=== PATIENT | male | born 1945 | race Caucasian/White ===

== ENCOUNTER → 2016-10-20 | Outpatient (REF) | payer MEDICARE | LOC: M SFHCPLAZ 07:59 | PROVIDERS: ATTEND Physician Assistant Medical | DX: E66.01 Morbid (severe) obesity due to excess calories (principal) ==

== ENCOUNTER → 2016-10-27 | Outpatient (REF) | payer MEDICARE ==
[2016-10-27 12:12] LABS: ALBUMIN 3.5 GM/DL (3.2-5.2); ALBUMIN/GLOBULIN RATIO 0.97 (1.00-1.93); ALKALINE PHOSPHATASE 69 U/L (45-117); ALT/SGPT 20 U/L (12-78); ANION GAP 9 MEQ/L (8-16); AST/SGOT 16 U/L (15-37); BILIRUBIN,TOTAL 0.5 MG/DL (0.2-1.0); BLOOD UREA NITROGEN 13 MG/DL (7-18); CALCIUM LEVEL 8.9 MG/DL (8.8-10.2); CARBON DIOXIDE LEVEL 31 MEQ/L (21-32); CHLORIDE LEVEL 102 MEQ/L (98-107); CREATININE FOR GFR 1.01 MG/DL (0.70-1.30); GLOMERULAR FILTRATION RATE > 60.0 (>42); GLUCOSE, FASTING 98 MG/DL (83-110); POTASSIUM SERUM 4.1 MEQ/L (3.5-5.1); SODIUM LEVEL 142 MEQ/L (136-145); TOTAL PROTEIN 7.1 GM/DL (6.4-8.2)
== END ==
LOC: M SFHCPLAZ 10:13
PROVIDERS: ATTEND Physician Assistant Medical
DX: E87.6 Hypokalemia (principal); I10 Essential (primary) hypertension; M10.9 Gout, unspecified; I83.11 Varicose veins of right lower extremity with inflammation; I83.12 Varicose veins of left lower extremity with inflammation; Z12.5 Encounter for screening for malignant neoplasm of prostate; Z12.11 Encounter for screening for malignant neoplasm of colon; E66.01 Morbid (severe) obesity due to excess calories
CPT/HCPCS: 36415; 80053; G0463

== ENCOUNTER → 2017-04-05 | Outpatient (CLI) | payer MEDICARE | LOC: M SMT 14:40 | DX: R06.02 Shortness of breath (principal); R91.1 Solitary pulmonary nodule | CPT/HCPCS: 71046; 82550 ==

== ENCOUNTER → 2017-04-05 | Outpatient (REF) | payer MEDICARE ==
[2017-04-05 15:29] LABS: BASO # 0.1 10^3/uL (0.0-0.2); BASO % 0.8 % (0.0-1.0); EOS # 0.2 10^3/uL (0.0-0.50); EOS % 1.7 % (0.0-3.0); HEMATOCRIT 45.3 % (42.0-52.0); HEMOGLOBIN 15.4 g/dl (14.0-18.0); IMMATURE GRANULOCYTE % 0.3 % (0-0); MEAN CORPUSCULAR HEMOGLOBIN 30.6 pg (27.0-33.0); MEAN CORPUSCULAR VOLUME 90.1 fl (80.0-96.0); NEUTROPHILS # 7.7 10^3/uL (1.8-7.7); NEUTROPHILS % 70.2 % (36.0-66.0); PLATELET COUNT, AUTOMATED 290 10^3/uL (150-450); RED BLOOD COUNT 5.03 10^6/uL (4.30-6.10); RED CELL DISTRIBUTION WIDTH 13.4 % (11.5-14.5); WHITE BLOOD COUNT 10.9 10^3/uL (4.0-10.0)
[2017-04-05 15:55] LABS: ALBUMIN 3.7 GM/DL (3.2-5.2); ALBUMIN/GLOBULIN RATIO 0.97 (1.00-1.93); ALKALINE PHOSPHATASE 81 U/L (45-117); ALT/SGPT 20 U/L (12-78); ANION GAP 9 MEQ/L (8-16); AST/SGOT 24 U/L (7-37); BILIRUBIN,TOTAL 0.6 MG/DL (0.2-1.0); BLOOD UREA NITROGEN 15 MG/DL (7-18); CALCIUM LEVEL 8.8 MG/DL (8.8-10.2); CARBON DIOXIDE LEVEL 30 MEQ/L (21-32); CHLORIDE LEVEL 103 MEQ/L (98-107); CPK CREATINE PHOSPHOKINASE 79 U/L (39-308); CREATININE FOR GFR 0.86 MG/DL (0.70-1.30); GLOMERULAR FILTRATION RATE > 60.0 (>42); GLUCOSE, FASTING 95 MG/DL (70-100); SODIUM LEVEL 142 MEQ/L (136-145); TOTAL PROTEIN 7.5 GM/DL (6.4-8.2); TROPONIN I < 0.02 NG/ML (< 0.10)
[2017-04-05 16:05] LABS: MB/CK RELATIVE INDEX 1.26 (< OR =4); NT-PRO BNP 500 PG/ML (<125); POTASSIUM SERUM 4.1 MEQ/L (3.5-5.1)
== END ==
LOC: M SFHCPLAZ 13:57
DX: R06.02 Shortness of breath (principal)
CPT/HCPCS: 82550

== ENCOUNTER → 2017-04-19 | Outpatient (CLI) | payer MEDICARE ==
[~2017-04-19] MED LIST: ISOVUE-370 76% 100ML VIAL (Q9967) As Ordered
== END ==
LOC: M RAD 15:12
DX: R91.1 Solitary pulmonary nodule (principal)
CPT/HCPCS: Q9967

== ENCOUNTER → 2017-04-21 | Outpatient (REF) | payer MEDICARE ==
[2017-04-21 12:55] LABS: ALBUMIN 3.7 GM/DL (3.2-5.2); ALBUMIN/GLOBULIN RATIO 1.09 (1.00-1.93); ALKALINE PHOSPHATASE 78 U/L (45-117); ALT/SGPT 20 U/L (12-78); ANION GAP 10 MEQ/L (8-16); AST/SGOT 19 U/L (7-37); BILIRUBIN,TOTAL 0.6 MG/DL (0.2-1.0); BLOOD UREA NITROGEN 18 MG/DL (7-18); CALCIUM LEVEL 8.9 MG/DL (8.8-10.2); CARBON DIOXIDE LEVEL 32 MEQ/L (21-32); CHLORIDE LEVEL 99 MEQ/L (98-107); CREATININE FOR GFR 0.99 MG/DL (0.70-1.30); GLOMERULAR FILTRATION RATE > 60.0 (>42); GLUCOSE, FASTING 106 MG/DL (70-100); NT-PRO BNP 517 PG/ML (<125); POTASSIUM SERUM 3.8 MEQ/L (3.5-5.1); SODIUM LEVEL 141 MEQ/L (136-145); TOTAL PROTEIN 7.1 GM/DL (6.4-8.2)
== END ==
LOC: M SFHCPLAZ 08:23
DX: K21.9 Gastro-esophageal reflux disease without esophagitis (principal); R06.02 Shortness of breath; R91.1 Solitary pulmonary nodule
CPT/HCPCS: 80053

== ENCOUNTER 2017-05-17 11:37 | Emergency (ER) | payer MEDICARE ==
[2017-05-17 12:31] LABS: BASO # 0.1 10^3/uL (0.0-0.2); BASO % 0.4 % (0.0-1.0); EOS # 0.2 10^3/uL (0.0-0.50); EOS % 1.9 % (0.0-3.0); HEMOGLOBIN 11.5 g/dl (14.0-18.0); LYMPH # 1.4 10^3/uL (1.5-4.5); LYMPH % 10.7 % (24.0-44.0); MEAN CORPUSCULAR HEMOGLOBIN 29.9 pg (27.0-33.0); MEAN CORPUSCULAR HGB CONC 31.9 g/dl (32.0-36.5); MEAN CORPUSCULAR VOLUME 93.5 fl (80.0-96.0); MONO # 0.9 10^3/uL (0.0-0.8); MONO % 7.2 % (0.0-5.0); NEUTROPHILS # 9.9 10^3/uL (1.8-7.7); NEUTROPHILS % 78.8 % (36.0-66.0); PLATELET COUNT, AUTOMATED 273 10^3/uL (150-450); RED BLOOD COUNT 3.85 10^6/uL (4.30-6.10); RED CELL DISTRIBUTION WIDTH 14.7 % (11.5-14.5); WHITE BLOOD COUNT 12.6 10^3/uL (4.0-10.0)
[2017-05-17 12:40] LABS: INR 1.06; PROTHROMBIN TIME 13.9 SECONDS (12.4-14.5)
[2017-05-17 12:41] LABS: PARTIAL THROMBOPLASTIN TIME 32.7 SECONDS (26.8-37.9)
[2017-05-17] MEDS: NITROGLYCERIN 0.4 MG SUBL TABLET SL (12:44)
[2017-05-17] MEDS: ASPIRIN 81 MG CHEW TABLET PO (12:45)
[2017-05-17 13:27] LABS: ERYTHROCYTE SEDIMENTATION RATE 59 mm/hr (0-20)
[2017-05-17 13:32] LABS: ALBUMIN/GLOBULIN RATIO 0.81 (1.00-1.93); ALT/SGPT 36 U/L (12-78); ANION GAP 7 MEQ/L (8-16); AST/SGOT 29 U/L (7-37); BILIRUBIN,DIRECT 0.2 MG/DL (0.0-0.2); BILIRUBIN,TOTAL 0.6 MG/DL (0.2-1.0); BLOOD UREA NITROGEN 15 MG/DL (7-18); CALCIUM LEVEL 8.4 MG/DL (8.8-10.2); CARBON DIOXIDE LEVEL 31 MEQ/L (21-32); CHLORIDE LEVEL 101 MEQ/L (98-107); CREATININE FOR GFR 0.99 MG/DL (0.70-1.30); GLOMERULAR FILTRATION RATE > 60.0 (>42); GLUCOSE, FASTING 112 MG/DL (70-100); LIPASE 78 U/L (73-393); POTASSIUM SERUM 4.1 MEQ/L (3.5-5.1); SODIUM LEVEL 139 MEQ/L (136-145); TOTAL PROTEIN 6.7 GM/DL (6.4-8.2); TROPONIN I 0.18 NG/ML (< 0.10)
[2017-05-17 13:33] LABS: NT-PRO BNP 3792 PG/ML (<125)
[2017-05-17 13:38] LABS: ALKALINE PHOSPHATASE 90 U/L (45-117); CK-MB VALUE MASS 1.9 NG/ML (0.0-3.6); CPK CREATINE PHOSPHOKINASE 40 U/L (39-308); FREE T4 1.29 NG/DL (0.76-1.46); MB/CK RELATIVE INDEX 4.75 (< OR =4)
[2017-05-17 14:25] LABS: D-DIMER QUANT > 4000.0 ng/ml (<500)
[2017-05-17] MEDS: HEPARIN SOD (PORCINE) 5000 UNITS/ML VIAL IV (14:33)
[2017-05-17] MEDS: HEPARIN DRIP 25,000 UNITS in APPROPRIATE DILUENT 1 EA IV (14:35)
== END 2017-05-17 17:04 | disposition short-term general hospital (02) ==
LOC: M ED 11:37
DX: I25.110 Atherosclerotic heart disease of native coronary artery with unstable angina pectoris (principal); R79.89 Other specified abnormal findings of blood chemistry; Z98.890 Other specified postprocedural states; Z95.1 Presence of aortocoronary bypass graft; R06.02 Shortness of breath; I11.9 Hypertensive heart disease without heart failure; I48.91 Unspecified atrial fibrillation; I25.2 Old myocardial infarction; K21.9 Gastro-esophageal reflux disease without esophagitis; M10.9 Gout, unspecified; Z87.891 Personal history of nicotine dependence; Z79.899 Other long term (current) drug therapy; Z79.82 Long term (current) use of aspirin
CPT/HCPCS: 71046

== ENCOUNTER 2017-05-30 11:46 | Inpatient (IN) | payer MEDICARE ==
[2017-05-30 12:33] LABS: BASO # 0.1 10^3/uL (0.0-0.2); BASO % 0.6 % (0.0-1.0); EOS # 0.4 10^3/uL (0.0-0.50); EOS % 3.6 % (0.0-3.0); HEMATOCRIT 36.9 % (42.0-52.0); HEMOGLOBIN 11.8 g/dl (14.0-18.0); IMMATURE GRANULOCYTE % 0.7 % (0-3.0); LYMPH # 1.2 10^3/uL (1.5-4.5); LYMPH % 10.8 % (24.0-44.0); MEAN CORPUSCULAR HEMOGLOBIN 29.4 pg (27.0-33.0); MEAN CORPUSCULAR VOLUME 91.8 fl (80.0-96.0); MONO # 0.7 10^3/uL (0.0-0.8); MONO % 6.7 % (0.0-5.0); NEUTROPHILS # 8.4 10^3/uL (1.8-7.7); NEUTROPHILS % 77.6 % (36.0-66.0); PLATELET COUNT, AUTOMATED 349 10^3/uL (150-450); RED BLOOD COUNT 4.02 10^6/uL (4.30-6.10); WHITE BLOOD COUNT 10.9 10^3/uL (4.0-10.0)
[2017-05-30 12:40] LABS: PARTIAL THROMBOPLASTIN TIME 35.8 SECONDS (26.8-37.9)
[2017-05-30 12:47] LABS: ALBUMIN 3.2 GM/DL (3.2-5.2); ALKALINE PHOSPHATASE 117 U/L (45-117); ALT/SGPT 27 U/L (12-78); ANION GAP 7 MEQ/L (8-16); AST/SGOT 21 U/L (7-37); BILIRUBIN,DIRECT 0.2 MG/DL (0.0-0.2); BILIRUBIN,TOTAL 0.6 MG/DL (0.2-1.0); BLOOD UREA NITROGEN 13 MG/DL (7-18); CALCIUM LEVEL 8.6 MG/DL (8.8-10.2); CARBON DIOXIDE LEVEL 32 MEQ/L (21-32); CHLORIDE LEVEL 101 MEQ/L (98-107); CPK CREATINE PHOSPHOKINASE 37 U/L (39-308); CREATININE FOR GFR 0.95 MG/DL (0.70-1.30); GLOMERULAR FILTRATION RATE > 60.0 (>42); GLUCOSE, FASTING 105 MG/DL (70-100); LIPASE 88 U/L (73-393); POTASSIUM SERUM 3.4 MEQ/L (3.5-5.1); SODIUM LEVEL 140 MEQ/L (136-145); TOTAL PROTEIN 7.2 GM/DL (6.4-8.2); TROPONIN I 0.14 NG/ML (< 0.10)
[2017-05-30 12:53] LABS: CK-MB VALUE MASS 1.6 NG/ML (0.0-3.6); MB/CK RELATIVE INDEX 4.32 (< OR =4); NT-PRO BNP 1987 PG/ML (<125)
[2017-05-30] MEDS: FUROSEMIDE 40 MG/4 ML VIAL (J1940) IV ×2 (13:30→18:00)
[2017-05-30 13:56] LABS: INR 1.07; PROTHROMBIN TIME 14.1 SECONDS (12.4-14.5)
[2017-05-30 16:01] LABS: CPK CREATINE PHOSPHOKINASE 36 U/L (39-308)
[2017-05-30 16:02] LABS: CK-MB VALUE MASS 1.4 NG/ML (0.0-3.6); MB/CK RELATIVE INDEX 3.88 (< OR =4)
[2017-05-30] MEDS ORDERED: ONDANSETRON 4MG/2ML VIAL (J2405) IV (18:00)
[2017-05-30] MEDS ORDERED: ACETAMINOPHEN TAB 650MG DOSE (2X325MG) PO (18:00)
[2017-05-30] MEDS ORDERED: ISOVUE-370 76% 100ML VIAL (Q9967) As Ordered (18:36)
[2017-05-30] MEDS ORDERED: MOM 30ML SUSPENSION UDC PO (19:00)
[2017-05-30] MEDS: ENOXAPARIN 100MG/1ML SYRINGE (J1650) SC (20:11)
[2017-05-30] MEDS: CARVedilol 12.5 MG TAB PO (20:14)
[2017-05-30] MEDS: SENNA 8.6 MG TAB (SENOKOT) PO (20:14)
[2017-05-30] MEDS: ATORVASTATIN 20 MG TAB PO (20:15)
[2017-05-30 23:37] LABS: CK-MB VALUE MASS 2.1 NG/ML (0.0-3.6); CPK CREATINE PHOSPHOKINASE 34 U/L (39-308); MB/CK RELATIVE INDEX 6.17 (< OR =4); TROPONIN I 0.08 NG/ML (< 0.10)
[2017-05-31] MEDS: ACETAMINOPHEN 500 MG TAB PO (00:05)
[2017-05-31 05:05] LABS: HEMATOCRIT 34.7 % (42.0-52.0); HEMOGLOBIN 11.3 g/dl (14.0-18.0); MEAN CORPUSCULAR HGB CONC 32.6 g/dl (32.0-36.5); PLATELET COUNT, AUTOMATED 297 10^3/uL (150-450); RED BLOOD COUNT 3.77 10^6/uL (4.30-6.10); RED CELL DISTRIBUTION WIDTH 13.9 % (11.5-14.5); WHITE BLOOD COUNT 10.4 10^3/uL (4.0-10.0)
[2017-05-31 05:19] LABS: ANION GAP 8 MEQ/L (8-16); BLOOD UREA NITROGEN 15 MG/DL (7-18); CALCIUM LEVEL 8.7 MG/DL (8.8-10.2); CARBON DIOXIDE LEVEL 33 MEQ/L (21-32); CHLORIDE LEVEL 101 MEQ/L (98-107); CREATININE FOR GFR 0.98 MG/DL (0.70-1.30); GLOMERULAR FILTRATION RATE > 60.0 (>42); GLUCOSE, FASTING 112 MG/DL (70-100); MAGNESIUM LEVEL 1.8 MG/DL (1.8-2.4); POTASSIUM SERUM 2.9 MEQ/L (3.5-5.1); SODIUM LEVEL 142 MEQ/L (136-145)
[2017-05-31] MEDS: POTASSIUM CHLORIDE 10 MEQ SR TABLET PO ×2 (06:48→11:00)
[2017-05-31] MEDS: ENOXAPARIN 100MG/1ML SYRINGE (J1650) SC (08:51)
[2017-05-31] MEDS: ASPIRIN 81 MG ENTERIC TAB PO (08:52)
[2017-05-31] MEDS: AMIODARONE 200 MG TAB (PACERONE) PO (08:52)
[2017-05-31] MEDS: CLOPIDOGREL 75 MG TAB PO (08:52)
[2017-05-31] MEDS: OMEPRAZOLE 20 MG CAP PO (08:52)
[2017-05-31] MEDS: CARVedilol 12.5 MG TAB PO ×2 (08:52→20:44)
[2017-05-31] MEDS: ALLOPURINOL 100 MG TAB PO (08:52)
[2017-05-31] MEDS ORDERED: ENOXAPARIN 40 MG/0.4 ML SYRINGE (J1650) SC (09:00)
[2017-05-31 14:23] LABS: BLOOD UREA NITROGEN 17 MG/DL (7-18); CALCIUM LEVEL 8.8 MG/DL (8.8-10.2); CARBON DIOXIDE LEVEL 33 MEQ/L (21-32); CHLORIDE LEVEL 102 MEQ/L (98-107); CREATININE FOR GFR 0.96 MG/DL (0.70-1.30); GLOMERULAR FILTRATION RATE > 60.0 (>42); GLUCOSE, FASTING 107 MG/DL (70-100)
[2017-05-31 14:28] LABS: ANION GAP 5 MEQ/L (8-16); POTASSIUM SERUM 3.9 MEQ/L (3.5-5.1); SODIUM LEVEL 140 MEQ/L (136-145)
[2017-05-31] MEDS: ATORVASTATIN 20 MG TAB PO (20:43)
[2017-05-31] MEDS: APIXABAN 5 MG TAB (ELIQUIS) PO (20:44)
[2017-05-31] MEDS: SENNA 8.6 MG TAB (SENOKOT) PO (20:44)
[2017-06-01 05:45] LABS: HEMATOCRIT 34.6 % (42.0-52.0); MEAN CORPUSCULAR HEMOGLOBIN 29.1 pg (27.0-33.0); MEAN CORPUSCULAR HGB CONC 31.8 g/dl (32.0-36.5); MEAN CORPUSCULAR VOLUME 91.5 fl (80.0-96.0); PLATELET COUNT, AUTOMATED 309 10^3/uL (150-450); RED BLOOD COUNT 3.78 10^6/uL (4.30-6.10); RED CELL DISTRIBUTION WIDTH 13.8 % (11.5-14.5); WHITE BLOOD COUNT 10.7 10^3/uL (4.0-10.0)
[2017-06-01 06:03] LABS: ANION GAP 7 MEQ/L (8-16); BLOOD UREA NITROGEN 18 MG/DL (7-18); CALCIUM LEVEL 8.9 MG/DL (8.8-10.2); CARBON DIOXIDE LEVEL 31 MEQ/L (21-32); CHLORIDE LEVEL 104 MEQ/L (98-107); CREATININE FOR GFR 0.92 MG/DL (0.70-1.30); GLOMERULAR FILTRATION RATE > 60.0 (>42); GLUCOSE, FASTING 103 MG/DL (70-100); POTASSIUM SERUM 3.6 MEQ/L (3.5-5.1); SODIUM LEVEL 142 MEQ/L (136-145)
[2017-06-01] MEDS: APIXABAN 5 MG TAB (ELIQUIS) PO (08:52)
[2017-06-01] MEDS: ALLOPURINOL 100 MG TAB PO (08:52)
[2017-06-01] MEDS: CLOPIDOGREL 75 MG TAB PO (08:52)
[2017-06-01] MEDS: OMEPRAZOLE 20 MG CAP PO (08:53)
[2017-06-01] MEDS: CARVedilol 12.5 MG TAB PO (08:53)
[2017-06-01] MEDS: ASPIRIN 81 MG ENTERIC TAB PO (08:53)
[2017-06-01] MEDS: AMIODARONE 200 MG TAB (PACERONE) PO (08:54)
== END 2017-06-01 15:05 | disposition home health service (06) | DRG 176 ==
LOC: M ED 11:46 → M ED INP 17:50 → M PCU 19:39
DX: I26.99 Other pulmonary embolism without acute cor pulmonale (principal); I50.9 Heart failure, unspecified; Z95.0 Presence of cardiac pacemaker; I25.10 Atherosclerotic heart disease of native coronary artery without angina pectoris; I48.2 Chronic atrial fibrillation; E66.01 Morbid (severe) obesity due to excess calories; Z79.899 Other long term (current) drug therapy; M10.9 Gout, unspecified; K57.30 Diverticulosis of large intestine without perforation or abscess without bleeding; K21.9 Gastro-esophageal reflux disease without esophagitis; Z95.2 Presence of prosthetic heart valve; E87.6 Hypokalemia

== ENCOUNTER → 2017-05-30 | Outpatient (REF) ==
[2017-05-30 10:46] LABS: HEMATOCRIT 36.5 % (42.0-52.0); HEMOGLOBIN 11.7 g/dl (14.0-18.0); MEAN CORPUSCULAR HEMOGLOBIN 29.5 pg (27.0-33.0); MEAN CORPUSCULAR HGB CONC 32.1 g/dl (32.0-36.5); MEAN CORPUSCULAR VOLUME 92.2 fl (80.0-96.0); PLATELET COUNT, AUTOMATED 362 10^3/uL (150-450); RED BLOOD COUNT 3.96 10^6/uL (4.30-6.10); RED CELL DISTRIBUTION WIDTH 13.9 % (11.5-14.5); WHITE BLOOD COUNT 10.5 10^3/uL (4.0-10.0)
[2017-05-30 11:15] LABS: ANION GAP 9 MEQ/L (8-16); BLOOD UREA NITROGEN 14 MG/DL (7-18); CALCIUM LEVEL 8.6 MG/DL (8.8-10.2); CARBON DIOXIDE LEVEL 32 MEQ/L (21-32); CHLORIDE LEVEL 100 MEQ/L (98-107); CREATININE FOR GFR 0.99 MG/DL (0.70-1.30); GLOMERULAR FILTRATION RATE > 60.0 (>42); GLUCOSE, FASTING 118 MG/DL (70-100); NT-PRO BNP 2065 PG/ML (<125); POTASSIUM SERUM 3.6 MEQ/L (3.5-5.1); SODIUM LEVEL 141 MEQ/L (136-145)
[2017-05-30 20:38] LABS: CHOLESTEROL LEVEL 120 MG/DL (<200); HDL CHOLESTEROL 50 MG/DL (>40); LDL CHOLESTEROL 44.8 MG/DL (<100); NON-HDL-C 70 MG/DL; TRIGLYCERIDES LEVEL 126 MG/DL (<150)
== END ==
DX: I48.91 Unspecified atrial fibrillation (principal)

== ENCOUNTER → 2017-06-09 | Outpatient (REF) | payer MEDICARE ==
[2017-06-09 15:51] LABS: BASO # 0.1 10^3/uL (0.0-0.2); BASO % 0.9 % (0.0-1.0); EOS # 0.6 10^3/uL (0.0-0.50); HEMATOCRIT 37.8 % (42.0-52.0); HEMOGLOBIN 11.7 g/dl (13.5-17.5); IMMATURE GRANULOCYTE % 0.5 % (0-3.0); LYMPH # 1.5 10^3/uL (1.5-4.5); LYMPH % 17.8 % (24.0-44.0); MEAN CORPUSCULAR VOLUME 93.8 fl (80.0-96.0); MONO # 0.7 10^3/uL (0.0-0.8); MONO % 8.5 % (0.0-5.0); NEUTROPHILS # 5.5 10^3/uL (1.8-7.7); NEUTROPHILS % 65.3 % (36.0-66.0); PLATELET COUNT, AUTOMATED 314 10^3/uL (150-450); RED BLOOD COUNT 4.03 10^6/uL (4.30-6.10); WHITE BLOOD COUNT 8.5 10^3/uL (4.0-10.0)
[2017-06-09 16:05] LABS: ALBUMIN 3.4 GM/DL (3.2-5.2); ALBUMIN/GLOBULIN RATIO 0.94 (1.00-1.93); ALKALINE PHOSPHATASE 112 U/L (45-117); ALT/SGPT 19 U/L (12-78); ANION GAP 8 MEQ/L (8-16); AST/SGOT 20 U/L (7-37); BILIRUBIN,TOTAL 0.4 MG/DL (0.2-1.0); BLOOD UREA NITROGEN 13 MG/DL (7-18); CALCIUM LEVEL 8.6 MG/DL (8.8-10.2); CARBON DIOXIDE LEVEL 28 MEQ/L (21-32); CHLORIDE LEVEL 109 MEQ/L (98-107); FERRITIN 379 NG/ML (26-388); GLOMERULAR FILTRATION RATE > 60.0 (>42); GLUCOSE, FASTING 83 MG/DL (70-100); IRON (FE) 42 UG/DL (65-175); PERCENT SATURATION 18.3 % (19.7-50.0); POTASSIUM SERUM 4.3 MEQ/L (3.5-5.1); SODIUM LEVEL 145 MEQ/L (136-145); TOTAL IRON BINDING CAPACITY 230 UG/DL (250-450)
== END ==
LOC: M SFHCPLAZ 12:19
DX: E87.6 Hypokalemia (principal); D50.9 Iron deficiency anemia, unspecified
CPT/HCPCS: 83550

== ENCOUNTER 2017-06-30 08:21 | Outpatient (RCR) | payer MEDICARE | END 2017-07-11 | LOC: M CR 08:21 | DX: Z51.89 Encounter for other specified aftercare (principal); Z95.1 Presence of aortocoronary bypass graft | CPT/HCPCS: 93798 ==

== ENCOUNTER 2017-07-25 12:41 | Outpatient (RCR) | payer MEDICARE | END 2017-08-11 | LOC: M CR 12:41 | DX: Z95.1 Presence of aortocoronary bypass graft (principal) | CPT/HCPCS: 93798 ==

== ENCOUNTER 2017-08-12 09:31 | Outpatient (RCR) | payer MEDICARE | END 2017-09-10 | LOC: M CR 09:31 | DX: Z95.1 Presence of aortocoronary bypass graft (principal) | CPT/HCPCS: 93798 ==

== ENCOUNTER 2017-09-12 10:22 | Outpatient (RCR) | payer MEDICARE | END 2017-10-11 | LOC: M CR 10:22 | DX: Z51.89 Encounter for other specified aftercare (principal); Z95.1 Presence of aortocoronary bypass graft | CPT/HCPCS: 93798 ==

== ENCOUNTER → 2017-10-03 | Outpatient (REF) | payer MEDICARE ==
[2017-10-03 13:36] LABS: BASO # 0.1 10^3/uL (0.0-0.2); BASO % 0.6 % (0.0-1.0); EOS # 0.3 10^3/uL (0.0-0.50); EOS % 3.6 % (0.0-3.0); HEMATOCRIT 35.1 % (42.0-52.0); IMMATURE GRANULOCYTE % 0.3 % (0-3.0); LYMPH # 1.1 10^3/uL (1.5-4.5); LYMPH % 14.4 % (24.0-44.0); MEAN CORPUSCULAR HEMOGLOBIN 28.3 pg (27.0-33.0); MEAN CORPUSCULAR HGB CONC 31.3 g/dl (32.0-36.5); MEAN CORPUSCULAR VOLUME 90.2 fl (80.0-96.0); MONO # 0.7 10^3/uL (0.0-0.8); MONO % 8.7 % (0.0-5.0); NEUTROPHILS # 5.7 10^3/uL (1.8-7.7); NEUTROPHILS % 72.4 % (36.0-66.0); PLATELET COUNT, AUTOMATED 220 10^3/uL (150-450); RED BLOOD COUNT 3.89 10^6/uL (4.30-6.10); RED CELL DISTRIBUTION WIDTH 16.4 % (11.5-14.5); WHITE BLOOD COUNT 7.8 10^3/uL (4.0-10.0)
[2017-10-03 13:58] LABS: ALBUMIN 3.5 GM/DL (3.2-5.2); ALBUMIN/GLOBULIN RATIO 1.06 (1.00-1.93); ALKALINE PHOSPHATASE 85 U/L (45-117); ALT/SGPT 20 U/L (12-78); ANION GAP 8 MEQ/L (8-16); AST/SGOT 12 U/L (7-37); BILIRUBIN,TOTAL 0.6 MG/DL (0.2-1.0); BLOOD UREA NITROGEN 25 MG/DL (7-18); CALCIUM LEVEL 8.2 MG/DL (8.8-10.2); CARBON DIOXIDE LEVEL 28 MEQ/L (21-32); CHLORIDE LEVEL 107 MEQ/L (98-107); CREATININE FOR GFR 1.48 MG/DL (0.70-1.30); FERRITIN 214 NG/ML (26-388); GLOMERULAR FILTRATION RATE 49.5 (>42); GLUCOSE, FASTING 96 MG/DL (70-100); IRON (FE) 47 UG/DL (65-175); NT-PRO BNP 2059 PG/ML (<125); PERCENT SATURATION 19.5 % (19.7-50.0); POTASSIUM SERUM 4.3 MEQ/L (3.5-5.1); SODIUM LEVEL 143 MEQ/L (136-145); TOTAL IRON BINDING CAPACITY 241 UG/DL (250-450); TOTAL PROTEIN 6.8 GM/DL (6.4-8.2)
== END ==
LOC: M SFHCPLAZ 09:17
DX: D50.9 Iron deficiency anemia, unspecified (principal); I26.99 Other pulmonary embolism without acute cor pulmonale; T81.718A Complication of other artery following a procedure, not elsewhere classified, initial encounter
CPT/HCPCS: 83550

== ENCOUNTER → 2017-10-31 | Outpatient (REF) | payer MEDICARE ==
[2017-10-31 12:25] LABS: ALBUMIN 3.3 GM/DL (3.2-5.2); ALBUMIN/GLOBULIN RATIO 1.03 (1.00-1.93); ALKALINE PHOSPHATASE 83 U/L (45-117); ALT/SGPT 21 U/L (12-78); ANION GAP 9 MEQ/L (8-16); AST/SGOT 13 U/L (7-37); BILIRUBIN,TOTAL 0.6 MG/DL (0.2-1.0); BLOOD UREA NITROGEN 25 MG/DL (7-18); CALCIUM LEVEL 8.3 MG/DL (8.8-10.2); CARBON DIOXIDE LEVEL 27 MEQ/L (21-32); CHLORIDE LEVEL 107 MEQ/L (98-107); CREATININE FOR GFR 1.38 MG/DL (0.70-1.30); GLOMERULAR FILTRATION RATE 53.6 (>42); GLUCOSE, FASTING 93 MG/DL (70-100); NT-PRO BNP 1564 PG/ML (<125); POTASSIUM SERUM 4.2 MEQ/L (3.5-5.1); SODIUM LEVEL 143 MEQ/L (136-145); TOTAL PROTEIN 6.5 GM/DL (6.4-8.2)
[2017-10-31 12:50] LABS: BASO # 0.1 10^3/uL (0.0-0.2); BASO % 0.8 % (0.0-1.0); EOS # 0.4 10^3/uL (0.0-0.50); EOS % 5.3 % (0.0-3.0); HEMATOCRIT 34.3 % (42.0-52.0); HEMOGLOBIN 10.8 g/dl (13.5-17.5); IMMATURE GRANULOCYTE % 0.3 % (0-3.0); LYMPH % 13.1 % (24.0-44.0); MEAN CORPUSCULAR HEMOGLOBIN 28.5 pg (27.0-33.0); MEAN CORPUSCULAR HGB CONC 31.5 g/dl (32.0-36.5); MEAN CORPUSCULAR VOLUME 90.5 fl (80.0-96.0); MONO # 0.7 10^3/uL (0.0-0.8); MONO % 9.8 % (0.0-5.0); NEUTROPHILS # 5.2 10^3/uL (1.8-7.7); NEUTROPHILS % 70.7 % (36.0-66.0); PLATELET COUNT, AUTOMATED 205 10^3/uL (150-450); RED BLOOD COUNT 3.79 10^6/uL (4.30-6.10); RED CELL DISTRIBUTION WIDTH 16.3 % (11.5-14.5); WHITE BLOOD COUNT 7.3 10^3/uL (4.0-10.0)
== END ==
LOC: M SFHCPLAZ 08:53
DX: K64.4 Residual hemorrhoidal skin tags (principal); I50.9 Heart failure, unspecified
CPT/HCPCS: 80053

== ENCOUNTER → 2017-11-07 | Outpatient (REF) | payer MEDICARE | LOC: M SFHCPLAZ 11-10 09:48 | DX: D50.9 Iron deficiency anemia, unspecified (principal); K57.30 Diverticulosis of large intestine without perforation or abscess without bleeding; K64.4 Residual hemorrhoidal skin tags; Z79.899 Other long term (current) drug therapy | CPT/HCPCS: 82270 ==

== ENCOUNTER → 2017-12-08 | Outpatient (REF) | payer MEDICARE ==
[2017-12-08 12:56] LABS: ALBUMIN 3.7 GM/DL (3.2-5.2); ALBUMIN/GLOBULIN RATIO 1.37 (1.00-1.93); ALKALINE PHOSPHATASE 92 U/L (45-117); ALT/SGPT 18 U/L (12-78); ANION GAP 8 MEQ/L (8-16); AST/SGOT 17 U/L (7-37); BILIRUBIN,TOTAL 0.5 MG/DL (0.2-1.0); BLOOD UREA NITROGEN 21 MG/DL (7-18); CALCIUM LEVEL 8.5 MG/DL (8.8-10.2); CARBON DIOXIDE LEVEL 28 MEQ/L (21-32); CHLORIDE LEVEL 107 MEQ/L (98-107); CREATININE FOR GFR 1.35 MG/DL (0.70-1.30); GLUCOSE, FASTING 88 MG/DL (70-100); POTASSIUM SERUM 4.7 MEQ/L (3.5-5.1); SODIUM LEVEL 143 MEQ/L (136-145); TOTAL PROTEIN 6.4 GM/DL (6.4-8.2)
[2017-12-08 13:18] LABS: BASO # 0.1 10^3/uL (0.0-0.2); BASO % 0.7 % (0.0-1.0); EOS # 0.4 10^3/uL (0.0-0.50); EOS % 5.4 % (0.0-3.0); HEMATOCRIT 37.5 % (42.0-52.0); HEMOGLOBIN 11.8 g/dl (13.5-17.5); IMMATURE GRANULOCYTE % 0.4 % (0-3.0); LYMPH # 0.9 10^3/uL (1.5-4.5); LYMPH % 13.3 % (24.0-44.0); MEAN CORPUSCULAR HEMOGLOBIN 28.9 pg (27.0-33.0); MEAN CORPUSCULAR HGB CONC 31.5 g/dl (32.0-36.5); MEAN CORPUSCULAR VOLUME 91.9 fl (80.0-96.0); MONO # 0.7 10^3/uL (0.0-0.8); MONO % 10.4 % (0.0-5.0); NEUTROPHILS # 4.8 10^3/uL (1.8-7.7); NEUTROPHILS % 69.8 % (36.0-66.0); PLATELET COUNT, AUTOMATED 221 10^3/uL (150-450); RED BLOOD COUNT 4.08 10^6/uL (4.30-6.10); RED CELL DISTRIBUTION WIDTH 15.6 % (11.5-14.5); WHITE BLOOD COUNT 6.9 10^3/uL (4.0-10.0)
[2017-12-08 14:04] LABS: ERYTHROCYTE SEDIMENTATION RATE 27 mm/hr (0-20)
== END ==
LOC: M SFHCPLAZ 10:28
DX: R21 Rash and other nonspecific skin eruption (principal)
CPT/HCPCS: 80053

== ENCOUNTER → 2017-12-09 | Outpatient (REF) | payer MEDICARE | LOC: M SFHCPLAZ 13:35 | DX: L57.8 Other skin changes due to chronic exposure to nonionizing radiation (principal); M33.13 Other dermatomyositis without myopathy (principal); D23.61 Other benign neoplasm of skin of right upper limb, including shoulder | CPT/HCPCS: 88305 ==

== ENCOUNTER → 2018-01-04 | Outpatient (REF) | payer MEDICARE ==
[2018-01-04 15:17] LABS: RETIC HEMOGLOBIN EQUIVALENT 32.3 pg (24-36); RETICULOCYTE # 96.5 10^9/L (17-77); RETICULOCYTE % 2.2 % (0.5-1.5)
[2018-01-04 15:39] LABS: ERYTHROCYTE SEDIMENTATION RATE 34 mm/hr (0-20)
[2018-01-04 15:41] LABS: C REACTIVE PROTEIN QUANTITATIV 0.67 MG/DL (0.00-0.30); TOTAL PROTEIN 7.2 GM/DL (6.4-8.2)
[2018-01-05 11:20] LABS: ALBUMIN % 54.8 % (55.8-66.1); ALPHA-1-GLOBULIN % 4.7 % (2.9-4.9)
[2018-01-05 11:21] LABS: ALBUMIN 3.95 GM/DL (3.29-5.55); ALPHA-1-GLOBULINS 0.34 GM/DL (0.17-0.41); ALPHA-2-GLOBULINS % 13.9 % (7.1-11.8); BETA-1-GLOBULINS % 5.6 % (4.7-7.2); BETA-2-GLOBULINS 0.45 GM/DL (0.19-0.55); BETA-2-GLOBULINS % 6.2 % (3.2-6.5); GAMMA GLOBULIN % 14.8 % (11.1-18.8); GAMMA GLOBULINS 1.07 GM/DL (0.65-1.58)
== END ==
LOC: M SFHCPLAZ 13:32
DX: L25.9 Unspecified contact dermatitis, unspecified cause (principal)
CPT/HCPCS: 84165

== ENCOUNTER → 2018-03-03 | Outpatient (REF) | payer MEDICARE ==
[~2018-03-03] MED LIST changes: +ACET32TAB PO; +ALLO100T PO; +AMIO200T PO; +ASPI1TAB PO; +ATOR1TAB21 PO; +CARV25TA PO; +CARV6.25 PO; +DULC10SU2 PR; +ELIQ5TAB PO; +ENEMENE4 PR; +FURO40TA2 PO; -ISOVUE-370 76% 100ML VIAL (Q9967) As Ordered; +KETO2CR TOP; +KLOR20TA42 PO; +MILK120011 PO; +MIRA3350 PO; +OMEP40CA2 PO; +OXYC-517 PO; +PLAV1TAB2 PO; +SENN1TAB10 PO
[2018-03-03 12:15] LABS: BASO # 0.1 10^3/uL (0.0-0.2); BASO % 0.9 % (0.0-1.0); EOS # 0.2 10^3/uL (0.0-0.50); EOS % 1.9 % (0.0-3.0); HEMATOCRIT 39.2 % (42.0-52.0); HEMOGLOBIN 12.7 g/dl (13.5-17.5); LYMPH # 1.1 10^3/uL (1.5-4.5); LYMPH % 10.7 % (24.0-44.0); MEAN CORPUSCULAR HEMOGLOBIN 29.3 pg (27.0-33.0); MEAN CORPUSCULAR HGB CONC 32.4 g/dl (32.0-36.5); MEAN CORPUSCULAR VOLUME 90.3 fl (80.0-96.0); MONO # 0.8 10^3/uL (0.0-0.8); NEUTROPHILS # 7.8 10^3/uL (1.8-7.7); PLATELET COUNT, AUTOMATED 252 10^3/uL (150-450); RED BLOOD COUNT 4.34 10^6/uL (4.30-6.10)
[2018-03-03 12:22] LABS: C REACTIVE PROTEIN QUANTITATIV < 0.30 MG/DL (0.00-0.30); COMPLEMENT C3 117 MG/DL (90-180); COMPLEMENT C4 28 MG/DL (10-40); IRON (FE) 74 UG/DL (65-175); PERCENT SATURATION 32.7 % (19.7-50.0); TOTAL IRON BINDING CAPACITY 226 UG/DL (250-450)
[2018-03-03 12:27] LABS: TOTAL 25(OH) VITAMIN D 23.6 NG/ML (30.0-100.0)
[2018-03-03 12:29] LABS: PTH INTACT 46.7 PG/ML (18.5-88.0); VITAMIN B12 LEVEL 291 PG/ML (247-911)
[2018-03-07 11:19] LABS: IMMUNOTYPING SERUM IGG ABNORMAL (NORMAL); IMMUNOTYPING SERUM KAPPA ABNORMAL (NORMAL)
[2018-03-09 00:31] LABS: ANTI JO-1 ANTIBODIES <0.2 AI (0.0-0.9); ANTINUCLEAR ANTIBODIES DIRECT Negative (Negative); BETA-2 GLYCOPROTEIN I ABY IGA <9 (0-25); BETA-2 GLYCOPROTEIN I ABY IGG <9 (0-20); BETA-2 GLYCOPROTEIN I ABY IGM <9 (0-32); CARDIOLIPIN IGA ANTIBODY <9 APL U/mL (0-11); CARDIOLIPIN IGG ANTIBODY 42 GPL U/mL (0-14); CARDIOLIPIN IGM ANTIBODY 10 MPL U/mL (0-12); FREE KAPPA LIGHT CHAINS SERUM 21.4 mg/L (3.3-19.4); FREE KAPPA LIGHT CHAINS URINE 7.76 mg/L (1.35-24.19); FREE LAMBDA LIGHT CHAINS SERUM 17.4 mg/L (5.7-26.3); FREE LAMBDA LIGHT CHAINS URINE 0.65 mg/L (0.24-6.66); KAPPA/LAMBDA RATIO SERUM 1.23 (0.26-1.65); KAPPA/LAMBDA RATIO URINE 11.94 (2.04-10.37)
[2018-03-12 08:46] LABS: DRVV SCREEN 42.8 SEC
== END ==
LOC: M SFHCPLAZ 08:33
PROVIDERS: ATTEND Family Medicine
DX: N18.3 Chronic kidney disease, stage 3 (moderate) (principal); Z86.711 Personal history of pulmonary embolism; L25.9 Unspecified contact dermatitis, unspecified cause; D47.2 Monoclonal gammopathy; D63.8 Anemia in other chronic diseases classified elsewhere
CPT/HCPCS: 36415; 82306; 82607; 83516; 83520; 83550; 83883; 83970; 85025; 85046; 85730; 86038; 86140; 86146; 86147; 86160; 86235; 86335; G0103

== ENCOUNTER → 2018-03-29 | Outpatient (REF) | payer MEDICARE ==
[2018-03-29 12:12] LABS: ALBUMIN 3.5 GM/DL (3.2-5.2); BILIRUBIN,TOTAL 0.4 MG/DL (0.2-1.0); CALCIUM LEVEL 8.3 MG/DL (8.8-10.2); CREATININE FOR GFR 1.41 MG/DL (0.70-1.30); GLOMERULAR FILTRATION RATE 52.2 (>42); POTASSIUM SERUM 4.2 MEQ/L (3.5-5.1); TOTAL PROTEIN 6.7 GM/DL (6.4-8.2); URIC ACID 4.1 MG/DL (3.5-7.2)
[2018-03-31 00:10] LABS: ALDOLASE 6.8 U/L (3.3-10.3); ANA (HEP2) Positive (.); CARDIOLIPIN IGA ANTIBODY <9 APL U/mL (0-11); CARDIOLIPIN IGG ANTIBODY 37 GPL U/mL (0-14); CARDIOLIPIN IGM ANTIBODY <9 MPL U/mL (0-12)
[2018-04-04 09:08] LABS: DRVV SCREEN 42.9 SEC
== END ==
LOC: M SFHCPLAZ 10:13
PROVIDERS: ATTEND Family Medicine
DX: L25.9 Unspecified contact dermatitis, unspecified cause (principal); N18.3 Chronic kidney disease, stage 3 (moderate); E53.8 Deficiency of other specified B group vitamins; M10.00 Idiopathic gout, unspecified site

== ENCOUNTER → 2018-03-31 | Outpatient (CLI) | payer MEDICARE ==
[~2018-03-31] MED LIST changes: +GASTROGRAFIN SOLUTION 30ML (Q9963) As Ordered ONE; +ISOVUE-370 76% 100ML VIAL (Q9967) As Ordered ONE
--- NOTE | 2018-03-31 14:57 | REP ---
CT NECK WITHOUT CONTRAST: HISTORY: Dermatomyositis. The naso-, prudencio-, and hypopharynx, larynx and subglottic trachea are normal in appearance. The salivary and thyroid glands are normal in size and density. Small lymph nodes less than 1 cm in size are present in the internal jugular chains, posterior triangles, submandibular, and submental areas. Atherosclerotic calcification is present at the carotid bifurcations. Degenerative change is present in the cervical spine. The lung apices are clear. The visualized sinuses are clear. IMPRESSION: There is no neck mass or adenopathy. Electronically Signed by Shailesh Boateng MD 03/31/2018 03:00 P
--- NOTE | 2018-03-31 19:38 | REP ---
CT CHEST WITH CONTRAST: 03/31/2018 Comparison: 05/30/2017. Clinical history: Dermatomyositis. Technique: Bolus of 100 ml Isovue 370 and scanning through the chest with coronal and sagittal reconstructions provided. Findings: The lung bella are well inflated. There is curvilinear fibrotic change in the inferior lingular segment of the left upper lobe adjacent to the chest wall and major fissure near the diaphragm. This is unchanged. Linear fibrotic change deep sulcus left lower lobe is noted and minimal. No pulmonary nodule or parenchymal mass other than a calcified granuloma right lower lobe, unchanged. Centrilobular emphysematous changes noted and stable. There is no significant interstitial lung disease. Heart size unchanged. Left atrium is enlarged. There is no pericardial thickening or effusion and no hiatal hernia. The aorta is without aneurysm or dissection. The main, right and left pulmonary arteries in the mediastinum as well as the proximal lobar arteries are without filling defects. There is no pathologic sized mediastinal, hilar, axillary or supraclavicular adenopathy. 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 Medial heads of the clavicles grossly intact. That portion of the left humeral head, the scapulae and ribs are all without fracture or focal lesion. Spine shows no compression deformity or focal lesion with marginal osteophytes and degenerative disc changes including some vacuum phenomenon at various levels. In the upper abdomen, visualized liver and spleen are unremarkable. Upper poles kidneys, adrenal glands and pancreas included were intact. Gallbladder showed no calcified stone. Bowel loops intact. No hiatal hernia. Aorta has calcifications without aneurysm in its visualized portion. I do not see abnormal soft-tissue calcification or masses. Musculature is symmetric in appearance throughout the chest. Impression: 1. Some chronic changes in the lung bella with some scarring left lower lobe and granuloma right lower lobe, but no infiltrate, nodule, effusion or mass. 2. Atrial enlargement, borderline heart size without pericardial thickening or effusion. No aortic aneurysm or dissection. 3. No mediastinal or hilar adenopathy. 4. 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 Bones with some degenerative changes, but no compression deformity of destructive lesion in the spine. 5. Upper abdomen without acute finding. Electronically Signed by Stalin Boothe MD 04/01/2018 01:15 P
--- NOTE | 2018-03-31 19:45 | REP ---
CT ABDOMEN AND PELVIS WITH IV AND ORAL CONTRAST: 03/31/2018. Clinical history: Dermatomyositis. Comparison: None. Technique: Oral Gastrografin mixture, 10 mL in 290 mL of flavored water for two doses per our bowel contrast protocol and 100 mL of Isovue 370, scanning through the abdomen and pelvis with coronal and sagittal reconstructions. Findings: Lung bases will be evaluated on the CT chest report this date. No definite hiatal hernia. Stomach filled in the fundus with some oral contrast. Contrast seen throughout small bowel loops into the left colon. The liver, spleen, gallbladder, pancreas, adrenal glands and kidneys are grossly unremarkable. There is no stone, hydronephrosis, solid mass, cyst or perinephric fluid. The aorta has atherosclerotic calcifications without aneurysm. No periaortic or retroperitoneal pathologic sized lymphadenopathy. Small bowel loops grossly unremarkable. Abdominal portion of the colon shows diverticulosis on the left without signs of diverticulitis. No ventral or inguinal hernia. Bone windows show lumbar spine with degenerative disc changes and vacuum phenomena at L5-S1 with anterior and posterior osteophytes. Other disc spaces show lesser narrowing at L3-4 and L4-5 and were normal above. There are degenerative disc changes throughout the lower thoracic region. No compression deformity or destructive lesions. No spondylolysis or spondylolisthesis. Some facet arthropathy lower lumbar spine. There is no abnormal soft-tissue calcification or other significant finding in the muscles and subcutaneous fat. CT pelvis: Sacrum, SI joints, hips, pelvis and ischia are without fracture or focal lesion. There are some degenerative changes. No destructive lesions. The distal left colon and sigmoid show diverticulosis from proximal to mid sigmoid without diverticulitis. I see no perforation, abscess or free air. There is no renal, ureteral or bladder stone and no hydroureter evident. Distal small bowel loops unremarkable. There are no inflammatory changes about the cecum. The appendix is seen and normal. No ventral or inguinal hernia nor pathologic sized inguinal adenopathy. Impression: 1. Negative CT abdomen and pelvis for any acute finding. Some atherosclerotic calcifications of the aorta without aneurysm. 2. Diverticulosis distal left colon and sigmoid without diverticulitis. There is no ascites, abscess, adenopathy, abnormalities of the solid organs or other acute intra-abdominal findings. 3. Degenerative disc and facet arthritic changes as described. No acute bony finding. Electronically Signed by Stalin Boothe MD 04/01/2018 01:16 P
== END ==
LOC: M RAD 12:04
PROVIDERS: ATTEND Family Medicine
DX: M33.13 Other dermatomyositis without myopathy (principal)
CPT/HCPCS: 70491; 71260; 74177; Q9963; Q9967

== ENCOUNTER → 2018-07-17 | Outpatient (REF) | payer MEDICARE ==
[~2018-07-17] MED LIST changes: -ASPI1TAB PO; +ASPI81TA26 PO; -GASTROGRAFIN SOLUTION 30ML (Q9963) As Ordered ONE; -ISOVUE-370 76% 100ML VIAL (Q9967) As Ordered ONE
[2018-07-17 16:04] LABS: BASO # 0.1 10^3/uL (0.0-0.2); BASO % 1.1 % (0.0-1.0); EOS # 0.3 10^3/uL (0.0-0.50); EOS % 4.8 % (0.0-3.0); HEMATOCRIT 40.2 % (42.0-52.0); HEMOGLOBIN 12.8 g/dl (13.5-17.5); LYMPH # 1.1 10^3/uL (1.5-4.5); LYMPH % 15.1 % (24.0-44.0); MEAN CORPUSCULAR HEMOGLOBIN 28.9 pg (27.0-33.0); MEAN CORPUSCULAR HGB CONC 31.8 g/dl (32.0-36.5); MEAN CORPUSCULAR VOLUME 90.7 fl (80.0-96.0); MONO # 0.8 10^3/uL (0.0-0.8); MONO % 10.7 % (0.0-5.0); NEUTROPHILS # 4.8 10^3/uL (1.8-7.7); PLATELET COUNT, AUTOMATED 230 10^3/uL (150-450); RED BLOOD COUNT 4.43 10^6/uL (4.30-6.10); WHITE BLOOD COUNT 7.1 10^3/uL (4.0-10.0)
[2018-07-17 16:20] LABS: CHOLESTEROL RISK RATIO 2.48 (<5); FREE T4 1.27 NG/DL (0.76-1.46); PERCENT SATURATION 20.7 % (19.7-50.0); THYROID STIMULATING HORMONE 1.84 uIU/ML (0.358-3.740)
[2018-07-17 16:45] LABS: PTH INTACT 61.6 PG/ML (18.5-88.0); TOTAL 25(OH) VITAMIN D 15.6 NG/ML (30.0-100.0)
[2018-07-20 00:07] LABS: FREE KAPPA LIGHT CHAINS SERUM 26.9 mg/L (3.3-19.4); FREE KAPPA LIGHT CHAINS URINE 34.6 mg/L (1.35-24.19); FREE LAMBDA LIGHT CHAINS SERUM 20.4 mg/L (5.7-26.3); FREE LAMBDA LIGHT CHAINS URINE 2.34 mg/L (0.24-6.66); KAPPA/LAMBDA RATIO SERUM 1.32 (0.26-1.65); KAPPA/LAMBDA RATIO URINE 14.79 (2.04-10.37)
== END ==
LOC: M SFHCPLAZ 13:10
PROVIDERS: ATTEND Physician Assistant Medical
DX: E78.2 Mixed hyperlipidemia (principal); D47.2 Monoclonal gammopathy; E55.9 Vitamin D deficiency, unspecified; D50.9 Iron deficiency anemia, unspecified; E66.01 Morbid (severe) obesity due to excess calories; Z68.45 Body mass index [BMI] 70 or greater, adult
CPT/HCPCS: 36415; 80061; 82306; 83550; 83883; 83970; 84439; 84443; 85025; G0463

== ENCOUNTER → 2018-09-13 | Outpatient (REF) | payer MEDICARE ==
[~2018-09-13] MED LIST changes: -ACET32TAB PO; +MAPA325T4 PO
[2018-09-13 13:33] LABS: ALBUMIN 3.6 GM/DL (3.2-5.2); BILIRUBIN,TOTAL 0.5 MG/DL (0.2-1.0); CALCIUM LEVEL 8.5 MG/DL (8.8-10.2); CREATININE FOR GFR 1.38 MG/DL (0.70-1.30); GLOMERULAR FILTRATION RATE 53.5 (>42); TOTAL PROTEIN 7.1 GM/DL (6.4-8.2)
== END ==
LOC: M SFHCPLAZ 10:07
PROVIDERS: ATTEND Physician Assistant Medical
DX: N18.3 Chronic kidney disease, stage 3 (moderate) (principal)
CPT/HCPCS: 36415; 80053; G0463

== ENCOUNTER → 2018-12-18 | Outpatient (REF) | payer MEDICARE ==
[~2018-12-18] MED LIST changes: -OMEP40CA2 PO; +OMEP40CA97 PO
[2018-12-18 13:13] LABS: BASO # 0.1 10^3/uL (0.0-0.2); BASO % 1.1 % (0.0-1.0); EOS # 0.4 10^3/uL (0.0-0.5); EOS % 4.5 % (0.0-3.0); HEMATOCRIT 43.2 % (42.0-52.0); HEMOGLOBIN 13.7 g/dl (13.5-17.5); LYMPH # 1.2 10^3/uL (1.5-5.0); LYMPH % 14.1 % (24.0-44.0); MEAN CORPUSCULAR HEMOGLOBIN 30.4 pg (27.0-33.0); MEAN CORPUSCULAR HGB CONC 31.7 g/dl (32.0-36.5); MEAN CORPUSCULAR VOLUME 95.8 fl (80.0-96.0); MONO # 0.8 10^3/uL (0.0-0.8); MONO % 10.1 % (0.0-5.0); NEUTROPHILS # 5.7 10^3/uL (1.5-8.5); NEUTROPHILS % 69.8 % (36.0-66.0); PLATELET COUNT, AUTOMATED 222 10^3/uL (150-450); RED BLOOD COUNT 4.51 10^6/uL (4.30-6.10); WHITE BLOOD COUNT 8.2 10^3/uL (4.0-10.0)
[2018-12-18 13:40] LABS: ALBUMIN 3.5 GM/DL (3.2-5.2); BILIRUBIN,TOTAL 0.6 MG/DL (0.2-1.0); CALCIUM LEVEL 8.5 MG/DL (8.8-10.2); CREATININE FOR GFR 1.63 MG/DL (0.70-1.30); GLOMERULAR FILTRATION RATE 44.1 (>42); PERCENT SATURATION 37.2 % (19.7-50.0); POTASSIUM SERUM 4.4 MEQ/L (3.5-5.1); TOTAL PROTEIN 7.1 GM/DL (6.4-8.2)
[2018-12-21 08:06] LABS: FREE KAPPA LIGHT CHAINS SERUM 40.1 mg/L (3.3-19.4); KAPPA/LAMBDA RATIO SERUM 1.43 (0.26-1.65)
== END ==
LOC: M SFHCPLAZ 10:26
PROVIDERS: ATTEND Physician Assistant Medical
DX: D50.9 Iron deficiency anemia, unspecified (principal); E53.8 Deficiency of other specified B group vitamins; N18.3 Chronic kidney disease, stage 3 (moderate); D47.2 Monoclonal gammopathy
CPT/HCPCS: 36415; 80053; 82607; 82728; 83550; 83883; 84252; 85025; G0463

== ENCOUNTER → 2019-03-28 | Outpatient (REF) | payer MEDICARE ==
[2019-03-28 12:38] LABS: BASO # 0.1 10^3/uL (0.0-0.2); EOS # 0.4 10^3/uL (0.0-0.5); EOS % 4.3 % (0.0-3.0); HEMATOCRIT 42.5 % (42.0-52.0); HEMOGLOBIN 13.4 g/dl (13.5-17.5); LYMPH % 12.7 % (24.0-44.0); MEAN CORPUSCULAR HEMOGLOBIN 30.1 pg (27.0-33.0); MEAN CORPUSCULAR HGB CONC 31.5 g/dl (32.0-36.5); MEAN CORPUSCULAR VOLUME 95.5 fl (80.0-96.0); MONO # 0.9 10^3/uL (0.0-0.8); MONO % 11.2 % (0.0-5.0); NEUTROPHILS # 5.7 10^3/uL (1.5-8.5); NEUTROPHILS % 70.4 % (36.0-66.0); PLATELET COUNT, AUTOMATED 192 10^3/uL (150-450); RED BLOOD COUNT 4.45 10^6/uL (4.30-6.10); WHITE BLOOD COUNT 8.1 10^3/uL (4.0-10.0)
[2019-03-28 13:18] LABS: PTH INTACT 56.7 PG/ML (18.5-88.0)
[2019-03-30 00:08] LABS: FREE KAPPA LIGHT CHAINS SERUM 35.5 mg/L (3.3-19.4); FREE LAMBDA LIGHT CHAINS SERUM 28.2 mg/L (5.7-26.3); KAPPA/LAMBDA RATIO SERUM 1.26 (0.26-1.65)
== END ==
LOC: M SFHCPLAZ 10:30
PROVIDERS: ATTEND Physician Assistant Medical
DX: D50.9 Iron deficiency anemia, unspecified (principal); E55.9 Vitamin D deficiency, unspecified; E53.8 Deficiency of other specified B group vitamins; Z12.5 Encounter for screening for malignant neoplasm of prostate
CPT/HCPCS: 36415; 82607; 82728; 83540; 83883; 83970; 85025; G0103; G0463

== ENCOUNTER → 2019-04-14 | Outpatient (CLI) | payer MEDICARE ==
--- NOTE | 2019-04-17 00:28 | SLEEPCENT ---
DATE OF PROCEDURE: 04/14/2019 ORDERED BY: TRE Geronimo Nocturnal polysomnography was performed for evaluation of sleep physiology in this patient with a history of excessive somnolence and nonrestorative sleep. 6 hours and 35 minutes of data were reviewed. There were 263 minutes of sleep identified. Sleep latency was mildly prolonged at 43.5 minutes. Rapid eye movement (REM) latency was more so prolonged at 176.5 minutes. Sleep architecture showed fragmentation and poor progression. There were only two brief REM cycles noted. Overall sleep efficiency was 67.5%. The patient's electrocardiogram showed a sinus rhythm with premature ventricular contractions (PVCs), average heart rate 63 beats per minute. EEG showed normal waveforms for awake and sleep. There were 65 respiratory events identified of 10 seconds in duration or greater for an apnea-hypopnea index of 14.8. The events were obstructive, not exclusive to sleep stage nor body posture. Arousals from respiratory events occurred 3.2 times per hour and oxygen desaturations were seen into the low 80s. There was some activity in the limb leads as well. Limb movement arousal index was 5.7. IMPRESSION: Obstructive sleep apnea syndrome (G47.33). Apnea-hypopnea index 14.8. RECOMMENDATIONS: The patient should be encouraged to return to the sleep disorder center for pressure therapy. In the interim alcohol and sedative avoidance should be practiced and caution exercised during the operation of motor vehicles.
== END ==
LOC: M SLEEP 20:00
PROVIDERS: ATTEND Nurse Practitioner Family
DX: G47.33 Obstructive sleep apnea (adult) (pediatric) (principal)

== ENCOUNTER → 2019-07-02 | Outpatient (REF) | payer MEDICARE ==
[~2019-07-02] MED LIST changes: +ACET325T43 PO; -MAPA325T4 PO
[2019-07-02 13:58] LABS: ALBUMIN 3.4 GM/DL (3.2-5.2); BILIRUBIN,TOTAL 0.8 MG/DL (0.2-1.0); CALCIUM LEVEL 8.5 MG/DL (8.8-10.2); CREATININE FOR GFR 1.53 MG/DL (0.70-1.30); GLOMERULAR FILTRATION RATE 47.3 (>42); POTASSIUM SERUM 4.2 MEQ/L (3.5-5.1); TOTAL PROTEIN 6.8 GM/DL (6.4-8.2)
[2019-07-02 14:06] LABS: PTH INTACT 97.7 PG/ML (18.5-88.0); TOTAL 25(OH) VITAMIN D 84.9 NG/ML (30.0-100.0)
== END ==
LOC: M PLALAB 10:53
PROVIDERS: ATTEND Physician Assistant Medical
DX: E55.9 Vitamin D deficiency, unspecified (principal); Z12.5 Encounter for screening for malignant neoplasm of prostate

== ENCOUNTER → 2020-04-09 | Outpatient (REF) | payer MEDICARE ==
[~2020-04-09] MED LIST changes: -AMIO200T PO; +AMIO200T3 PO
[2020-04-09 15:21] LABS: BASO # 0.1 10^3/uL (0.0-0.2); BASO % 1.1 % (0.0-1.0); EOS # 0.3 10^3/uL (0.0-0.5); EOS % 3.7 % (0.0-3.0); HEMATOCRIT 41.5 % (42.0-52.0); HEMOGLOBIN 13.4 g/dl (13.5-17.5); LYMPH # 1.2 10^3/uL (1.5-5.0); MEAN CORPUSCULAR HEMOGLOBIN 31.2 pg (27.0-33.0); MEAN CORPUSCULAR HGB CONC 32.3 g/dl (32.0-36.5); MEAN CORPUSCULAR VOLUME 96.5 fl (80.0-96.0); MONO # 0.7 10^3/uL (0.0-0.8); MONO % 7.7 % (0.0-5.0); NEUTROPHILS # 6.1 10^3/uL (1.5-8.5); PLATELET COUNT, AUTOMATED 185 10^3/uL (150-450); WHITE BLOOD COUNT 8.4 10^3/uL (4.0-10.0)
[2020-04-09 15:59] LABS: ALBUMIN 3.7 GM/DL (3.2-5.2); CALCIUM LEVEL 8.8 MG/DL (8.8-10.2); CHOLESTEROL RISK RATIO 2.636 (<5); CREATININE FOR GFR 1.53 MG/DL (0.70-1.30); GLOMERULAR FILTRATION RATE 47.2 (>42); MAGNESIUM LEVEL 2.2 MG/DL (1.8-2.4); POTASSIUM SERUM 3.7 MEQ/L (3.5-5.1); TOTAL PROTEIN 6.8 GM/DL (6.4-8.2)
[2020-04-09 16:02] LABS: TOTAL 25(OH) VITAMIN D 54.6 NG/ML (30.0-100.0)
[2020-04-11 18:07] LABS: FREE KAPPA LIGHT CHAINS SERUM 37.5 mg/L (3.3-19.4); FREE LAMBDA LIGHT CHAINS SERUM 28.2 mg/L (5.7-26.3); KAPPA/LAMBDA RATIO SERUM 1.33 (0.26-1.65)
== END ==
LOC: M SFHCPLAZ 13:18
PROVIDERS: ATTEND Physician Assistant Medical
DX: I13.0 Hypertensive heart and chronic kidney disease with heart failure and stage 1 through stage 4 chronic kidney disease, or unspecified chronic kidney disease (principal); I50.42 Chronic combined systolic (congestive) and diastolic (congestive) heart failure; D50.9 Iron deficiency anemia, unspecified; E53.8 Deficiency of other specified B group vitamins; E55.9 Vitamin D deficiency, unspecified; E78.2 Mixed hyperlipidemia; D47.2 Monoclonal gammopathy; N18.30 Chronic kidney disease, stage 3 unspecified; Z12.5 Encounter for screening for malignant neoplasm of prostate
CPT/HCPCS: 36415; 80053; 80061; 82306; 82550; 82607; 82728; 82747; 83540; 83735; 83880; 83883; 83970; 85025; G0103

== ENCOUNTER → 2020-08-08 | Outpatient (REF) | payer MEDICARE ==
[2020-08-08 14:07] LABS: ALBUMIN 3.4 GM/DL (3.2-5.2); CALCIUM LEVEL 8.6 MG/DL (8.8-10.2); CREATININE FOR GFR 1.39 MG/DL (0.70-1.30); GLOMERULAR FILTRATION RATE 52.7 (>42); POTASSIUM SERUM 3.8 MEQ/L (3.5-5.1); TOTAL PROTEIN 6.7 GM/DL (6.4-8.2)
== END ==
LOC: M SFHCPLAZ 10:28
PROVIDERS: ATTEND Physician Assistant Medical
DX: N18.30 Chronic kidney disease, stage 3 unspecified (principal); I50.42 Chronic combined systolic (congestive) and diastolic (congestive) heart failure

== ENCOUNTER → 2021-03-12 | Outpatient (CLI) | payer MEDICARE ==
[~2021-03-12] MED LIST changes: -KLOR20TA42 PO; +OMEP40CA4 PO; -OMEP40CA97 PO; +POTA-141 PO
[2021-03-12 17:58] LABS: BASO # 0.1 10^3/uL (0.0-0.2); BASO % 1.2 % (0.0-1.0); EOS # 0.2 10^3/uL (0.0-0.5); EOS % 2.6 % (0.0-3.0); HEMATOCRIT 39.7 % (42.0-52.0); HEMOGLOBIN 12.8 g/dl (13.5-17.5); LYMPH # 1.1 10^3/uL (1.5-5.0); LYMPH % 14.4 % (24.0-44.0); MEAN CORPUSCULAR HEMOGLOBIN 31.8 pg (27.0-33.0); MEAN CORPUSCULAR HGB CONC 32.2 g/dl (32.0-36.5); MEAN CORPUSCULAR VOLUME 98.5 fl (80.0-96.0); MONO # 0.7 10^3/uL (0.0-0.8); MONO % 8.8 % (2.0-8.0); NEUTROPHILS # 5.6 10^3/uL (1.5-8.5); NEUTROPHILS % 72.7 % (36.0-66.0); PLATELET COUNT, AUTOMATED 160 10^3/uL (150-450); RED BLOOD COUNT 4.03 10^6/uL (4.30-6.10); WHITE BLOOD COUNT 7.6 10^3/uL (4.0-10.0)
[2021-03-12 18:05] LABS: ALBUMIN 3.5 GM/DL (3.2-5.2); BILIRUBIN,TOTAL 0.8 MG/DL (0.2-1.0); CALCIUM LEVEL 8.2 MG/DL (8.8-10.2); CHOLESTEROL RISK RATIO 2.181 (<5); CREATININE FOR GFR 1.41 MG/DL (0.70-1.30); GLOMERULAR FILTRATION RATE 51.9 (>42); MAGNESIUM LEVEL 2.4 MG/DL (1.8-2.4); POTASSIUM SERUM 3.5 MEQ/L (3.5-5.1); TOTAL PROTEIN 6.5 GM/DL (6.4-8.2)
== END ==
LOC: M PLALAB 14:21
PROVIDERS: ATTEND Physician Assistant Medical
DX: D50.9 Iron deficiency anemia, unspecified (principal); E78.2 Mixed hyperlipidemia; I50.42 Chronic combined systolic (congestive) and diastolic (congestive) heart failure; N18.30 Chronic kidney disease, stage 3 unspecified; D47.2 Monoclonal gammopathy

== ENCOUNTER → 2021-07-09 | Outpatient (CLI) | payer MEDICARE ==
[~2021-07-09] MED LIST changes: -AMIO200T3 PO; +AMIO200T49 PO
[2021-07-09 15:11] LABS: BASO # 0.1 10^3/uL (0.0-0.2); BASO % 1.4 % (0.0-1.0); EOS # 0.5 10^3/uL (0.0-0.5); EOS % 5.6 % (0.0-3.0); HEMATOCRIT 37.7 % (42.0-52.0); HEMOGLOBIN 12.6 g/dl (13.5-17.5); LYMPH % 12.5 % (24.0-44.0); MEAN CORPUSCULAR HEMOGLOBIN 32.6 pg (27.0-33.0); MEAN CORPUSCULAR HGB CONC 33.4 g/dl (32.0-36.5); MEAN CORPUSCULAR VOLUME 97.7 fl (80.0-96.0); MONO # 0.6 10^3/uL (0.0-0.8); MONO % 7.8 % (2.0-8.0); NEUTROPHILS # 5.8 10^3/uL (1.5-8.5); NEUTROPHILS % 72.2 % (36.0-66.0); PLATELET COUNT, AUTOMATED 151 10^3/uL (150-450); RED BLOOD COUNT 3.86 10^6/uL (4.30-6.10); WHITE BLOOD COUNT 8.1 10^3/uL (4.0-10.0)
[2021-07-09 15:35] LABS: ALBUMIN 3.4 GM/DL (3.2-5.2); BILIRUBIN,TOTAL 0.7 MG/DL (0.2-1.0); CALCIUM LEVEL 8.8 MG/DL (8.8-10.2); CREATININE FOR GFR 1.43 MG/DL (0.70-1.30); GLOMERULAR FILTRATION RATE 50.9 (>42); POTASSIUM SERUM 4.1 MEQ/L (3.5-5.1); TOTAL PROTEIN 6.3 GM/DL (6.4-8.2)
== END ==
LOC: M PLALAB 12:16
PROVIDERS: ATTEND Physician Assistant Medical
DX: Z12.5 Encounter for screening for malignant neoplasm of prostate (principal); I11.0 Hypertensive heart disease with heart failure; D50.9 Iron deficiency anemia, unspecified; I50.42 Chronic combined systolic (congestive) and diastolic (congestive) heart failure
CPT/HCPCS: 36415; 80053; 82728; 83540; 83880; 85025; G0103

== ENCOUNTER → 2021-10-21 | Outpatient (CLI) | payer MEDICARE | LOC: M PLALAB 15:02 | PROVIDERS: ATTEND Physician Assistant Medical | DX: M17.11 Unilateral primary osteoarthritis, right knee (principal); M25.461 Effusion, right knee ==

== ENCOUNTER → 2021-11-11 | Outpatient (CLI) | payer MEDICARE ==
[2021-11-11 14:11] LABS: ALBUMIN 3.4 GM/DL (3.2-5.2); BILIRUBIN,TOTAL 1.1 MG/DL (0.2-1.0); CALCIUM LEVEL 8.4 MG/DL (8.8-10.2); CREATININE FOR GFR 1.55 MG/DL (0.70-1.30); GLOMERULAR FILTRATION RATE 46.4 (>42); POTASSIUM SERUM 3.8 MEQ/L (3.5-5.1); TOTAL PROTEIN 6.8 GM/DL (6.4-8.2)
== END ==
LOC: M PLALAB 11:07
PROVIDERS: ATTEND Physician Assistant Medical
DX: I50.42 Chronic combined systolic (congestive) and diastolic (congestive) heart failure (principal); N18.30 Chronic kidney disease, stage 3 unspecified

== ENCOUNTER → 2022-02-08 | Outpatient (CLI) | payer MEDICARE ==
[~2022-02-08] MED LIST changes: +ALLE10TA62 PO; +ATOR40TA75 PO; +CLOP75TA99 PO; +ERGO500029 PO; +FINA5TAB2 PO; +FURO80TA2 PO; +GABA-282 PO; +HYDR200T3 PO; +LOSA25TA13 PO; +OMEGCAP4 PO; +PANT40TA29 PO; -PLAV1TAB2 PO; +[UNRECOGNIZED DRUG - CODE] PO
[2022-02-08 13:45] LABS: BASO # 0.1 10^3/uL (0.0-0.2); BASO % 1.3 % (0.0-1.0); EOS # 0.3 10^3/uL (0.0-0.5); EOS % 4.4 % (0.0-3.0); HEMATOCRIT 39.9 % (42.0-52.0); HEMOGLOBIN 12.7 g/dl (13.5-17.5); LYMPH # 1.2 10^3/uL (1.5-5.0); LYMPH % 16.1 % (24.0-44.0); MEAN CORPUSCULAR HEMOGLOBIN 32.1 pg (27.0-33.0); MEAN CORPUSCULAR HGB CONC 31.8 g/dl (32.0-36.5); MEAN CORPUSCULAR VOLUME 100.8 fl (80.0-96.0); MONO # 0.7 10^3/uL (0.0-0.8); MONO % 9.4 % (2.0-8.0); NEUTROPHILS # 5.2 10^3/uL (1.5-8.5); NEUTROPHILS % 68.4 % (36.0-66.0); PLATELET COUNT, AUTOMATED 163 10^3/uL (150-450); RED BLOOD COUNT 3.96 10^6/uL (4.30-6.10); WHITE BLOOD COUNT 7.5 10^3/uL (4.0-10.0)
[2022-02-08 13:56] LABS: INR 1.03; PROTHROMBIN TIME 13.7 SECONDS (12.5-14.5)
[2022-02-08 13:59] LABS: CHLORIDE LEVEL 104 MMOL/L (98-107); POTASSIUM SERUM 4.4 MMOL/L (3.5-5.1); SODIUM LEVEL 143 MMOL/L (136-145)
[2022-02-08 14:00] LABS: ALBUMIN 3.7 G/DL (3.2-5.2); CARBON DIOXIDE LEVEL 32 MMOL/L (20-31)
[2022-02-08 14:03] LABS: FREE T4 1.23 NG/DL (0.89-1.76)
[2022-02-08 14:04] LABS: ALKALINE PHOSPHATASE 92 U/L (46-116); THYROID STIMULATING HORMONE 1.742 uIU/ML (0.55-4.78)
[2022-02-08 14:05] LABS: BLOOD UREA NITROGEN 21 MG/DL (9-23); CALCIUM LEVEL 8.8 MG/DL (8.3-10.6); GLUCOSE, FASTING 97 MG/DL (74-106)
[2022-02-08 14:06] LABS: VITAMIN B12 LEVEL 1351 PG/ML (211-911)
[2022-02-08 14:07] LABS: ALT/SGPT 21 U/L (7.0-40); AST/SGOT 22 U/L (<34); GLOMERULAR FILTRATION RATE 48.2 (>42); TOTAL PROTEIN 6.4 G/DL (5.7-8.2); TOTAL PROTEIN 6.4 GM/DL (6.4-8.2)
[2022-02-12 06:02] LABS: ALBUMIN % 56.2 % (55.8-66.1); ALPHA-1-GLOBULIN % 4.7 % (2.9-4.9); ALPHA-2-GLOBULINS 0.81 GM/DL (0.42-0.99); ALPHA-2-GLOBULINS % 12.6 % (7.1-11.8); BETA-1-GLOBULINS 0.35 GM/DL (0.28-0.60); BETA-1-GLOBULINS % 5.4 % (4.7-7.2); BETA-2-GLOBULINS 0.35 GM/DL (0.19-0.55); BETA-2-GLOBULINS % 5.5 % (3.2-6.5); GAMMA GLOBULIN % 15.6 % (11.1-18.8)
[2022-02-12 06:08] LABS: IMMUNOTYPING SERUM IGG ABNORMAL (NORMAL); IMMUNOTYPING SERUM KAPPA ABNORMAL (NORMAL)
== END ==
LOC: M PLALAB 11:39
PROVIDERS: ATTEND Family Medicine
DX: I50.42 Chronic combined systolic (congestive) and diastolic (congestive) heart failure (principal)

== ENCOUNTER → 2022-02-11 | Outpatient (CLI) | payer MEDICARE | LOC: M LABSMTC 10:00 | PROVIDERS: ATTEND Anesthesiology | DX: Z01.812 Encounter for preprocedural laboratory examination (principal); Z11.52 Encounter for screening for COVID-19 ==

== ENCOUNTER 2022-02-15 08:14 | Day surgery (SDC) | payer MEDICARE ==
[~2022-02-15] VITALS: Ht 170.2 cm; Wt 124.3 kg
[~2022-02-15 08:14] MED LIST changes: +BSS IRRIG/VANCO(10MG)/TOBRA(5MG)/EPINEPH(1:1000-0.5CC)500ML BAG-ORONLY IR ONE; +CEFUROXIME 1MG/0.1ML INTRACAMERAL INJ As Ordered ONE; +CYCLOPENTOLATE 1% OPHTH SOLN 2 ML BTL OD SCH; +LIDOCAINE 1% 1ML PF SYRINGE (OR EYE CASES) As Ordered ONE; +LIDOCAINE 3.5 % 1ML OPHTH TOPICAL GEL OU ONE; +MIDAZOLAM INJ 2MG/2ML VIAL (J2250 PER 1MG) As Ordered ONE; +OFLOXACIN 0.3 % (OCUFLOX) OPTH SOL 5ML OD ONE; +PHENYLEPHRINE 10% OPHTH SOL 5ML OD PRN; +PHENYLEPHRINE 2.5% OPHTH SOL 2ML OD SCH; +TROPICAMIDE 1% OPHTH SOLN 15ML OD SCH
[2022-02-15 10:45] VITALS: BP 154/67
== END 2022-02-15 10:59 | disposition home or self-care (01) ==
LOC: M SDC 08:14
PROVIDERS: ATTEND Ophthalmology
DX: H25.11 Age-related nuclear cataract, right eye (principal); I25.10 Atherosclerotic heart disease of native coronary artery without angina pectoris; I10 Essential (primary) hypertension; I25.2 Old myocardial infarction; Z95.0 Presence of cardiac pacemaker; Z95.810 Presence of automatic (implantable) cardiac defibrillator; E78.5 Hyperlipidemia, unspecified; Z79.82 Long term (current) use of aspirin; Z79.899 Other long term (current) drug therapy; Z87.891 Personal history of nicotine dependence; Z88.8 Allergy status to other drugs, medicaments and biological substances; R06.02 Shortness of breath; G47.33 Obstructive sleep apnea (adult) (pediatric)
CPT/HCPCS: 66984; J0697; J2250; V2632

== ENCOUNTER → 2022-02-17 | Outpatient (CLI) | payer MEDICARE ==
[~2022-02-17] MED LIST changes: -BSS IRRIG/VANCO(10MG)/TOBRA(5MG)/EPINEPH(1:1000-0.5CC)500ML BAG-ORONLY IR ONE; -CEFUROXIME 1MG/0.1ML INTRACAMERAL INJ As Ordered ONE; -CYCLOPENTOLATE 1% OPHTH SOLN 2 ML BTL OD SCH; -LIDOCAINE 1% 1ML PF SYRINGE (OR EYE CASES) As Ordered ONE; -LIDOCAINE 3.5 % 1ML OPHTH TOPICAL GEL OU ONE; -MIDAZOLAM INJ 2MG/2ML VIAL (J2250 PER 1MG) As Ordered ONE; -OFLOXACIN 0.3 % (OCUFLOX) OPTH SOL 5ML OD ONE; -PHENYLEPHRINE 10% OPHTH SOL 5ML OD PRN; -PHENYLEPHRINE 2.5% OPHTH SOL 2ML OD SCH; -TROPICAMIDE 1% OPHTH SOLN 15ML OD SCH
== END ==
LOC: M LABSMTC 11:26
PROVIDERS: ATTEND Anesthesiology
DX: Z01.818 Encounter for other preprocedural examination (principal); Z20.822 Contact with and (suspected) exposure to COVID-19

== ENCOUNTER 2022-02-22 10:49 | Day surgery (SDC) | payer MEDICARE ==
[~2022-02-22] VITALS: Ht 170.2 cm; Wt 125.6 kg
[~2022-02-22 10:49] MED LIST changes: +ACETYLCHOLINE OPHTH SOLN 1% 2ML (MIOCHOL-E) As Ordered ONE; +BSS IRRIG/VANCO(10MG)/TOBRA(5MG)/EPINEPH(1:1000-0.5CC)500ML BAG-ORONLY IR ONE; +CEFUROXIME 1MG/0.1ML INTRACAMERAL INJ As Ordered ONE; +CYCLOPENTOLATE 1% OPHTH SOLN 2ML BTL OS SCH; +LIDOCAINE 1% 1ML PF SYRINGE (OR EYE CASES) As Ordered ONE; +LIDOCAINE 3.5 % 1ML OPHTH TOPICAL GEL OU ONE; +OFLOXACIN 0.3 % (OCUFLOX) OPTH SOL 5ML OS ONE; +PHENYLEPHRINE 10% OPHTH SOL 5ML OS PRN; +PHENYLEPHRINE 2.5% OPHTH SOL 2ML OS SCH; +TROPICAMIDE 1% OPHTH SOLN 15ML OS SCH
[2022-02-22] MEDS ORDERED: MIDAZOLAM INJ 2MG/2ML VIAL (J2250 PER 1MG) As Ordered ONE (11:45)
[2022-02-22 12:04] VITALS: BP 143/63
== END 2022-02-22 12:20 | disposition home or self-care (01) ==
LOC: M SDC 10:49
PROVIDERS: ATTEND Ophthalmology
DX: H25.12 Age-related nuclear cataract, left eye (principal); I10 Essential (primary) hypertension; I25.10 Atherosclerotic heart disease of native coronary artery without angina pectoris; G47.30 Sleep apnea, unspecified; N40.0 Benign prostatic hyperplasia without lower urinary tract symptoms; Z79.899 Other long term (current) drug therapy; Z79.82 Long term (current) use of aspirin; Z95.0 Presence of cardiac pacemaker; I25.2 Old myocardial infarction; E78.5 Hyperlipidemia, unspecified; Z95.1 Presence of aortocoronary bypass graft
CPT/HCPCS: 66984; J0697; J2250; V2632

== ENCOUNTER → 2022-08-12 | Outpatient (REF) | payer MEDICARE ==
[~2022-08-12] MED LIST changes: -ACETYLCHOLINE OPHTH SOLN 1% 2ML (MIOCHOL-E) As Ordered ONE; -BSS IRRIG/VANCO(10MG)/TOBRA(5MG)/EPINEPH(1:1000-0.5CC)500ML BAG-ORONLY IR ONE; -CEFUROXIME 1MG/0.1ML INTRACAMERAL INJ As Ordered ONE; -CYCLOPENTOLATE 1% OPHTH SOLN 2ML BTL OS SCH; -LIDOCAINE 1% 1ML PF SYRINGE (OR EYE CASES) As Ordered ONE; -LIDOCAINE 3.5 % 1ML OPHTH TOPICAL GEL OU ONE; -OFLOXACIN 0.3 % (OCUFLOX) OPTH SOL 5ML OS ONE; -PHENYLEPHRINE 10% OPHTH SOL 5ML OS PRN; -PHENYLEPHRINE 2.5% OPHTH SOL 2ML OS SCH; -TROPICAMIDE 1% OPHTH SOLN 15ML OS SCH
== END ==
LOC: M SFHCPLAZ 10:26
PROVIDERS: ATTEND Physician Assistant Medical
DX: E53.8 Deficiency of other specified B group vitamins (principal)

== ENCOUNTER → 2023-02-14 | Outpatient (CLI) | payer MEDICARE ==
[~2023-02-14] MED LIST changes: -HYDR200T3 PO; +HYDR200T46 PO
[2023-02-14 14:14] LABS: BASO # 0.1 10^3/uL (0.0-0.2); BASO % 1.2 % (0.0-1.0); EOS # 0.3 10^3/uL (0.0-0.5); EOS % 3.1 % (0.0-3.0); HEMATOCRIT 36.6 % (42.0-52.0); HEMOGLOBIN 11.9 g/dl (13.5-17.5); LYMPH # 1.3 10^3/uL (1.5-5.0); LYMPH % 15.2 % (24.0-44.0); MEAN CORPUSCULAR HGB CONC 32.5 g/dl (32.0-36.5); MEAN CORPUSCULAR VOLUME 101.4 fl (80.0-96.0); MONO # 0.8 10^3/uL (0.0-0.8); MONO % 8.8 % (2.0-8.0); NEUTROPHILS # 6.3 10^3/uL (1.5-8.5); NEUTROPHILS % 71.4 % (36.0-66.0); PLATELET COUNT, AUTOMATED 175 10^3/uL (150-450); RED BLOOD COUNT 3.61 10^6/uL (4.30-6.10); WHITE BLOOD COUNT 8.8 10^3/uL (4.0-10.0)
[2023-02-14 15:26] LABS: ALBUMIN 3.6 G/DL (3.2-5.2); BILIRUBIN,TOTAL 0.8 MG/DL (0.3-1.2); CALCIUM LEVEL 8.6 MG/DL (8.3-10.6); CREATININE FOR GFR 1.71 MG/DL (0.70-1.30); FERRITIN 1074.7 NG/ML (10.5-307.3); GLOMERULAR FILTRATION RATE 41.3 (>42); POTASSIUM SERUM 3.7 MMOL/L (3.5-5.1); TOTAL PROTEIN 6.3 G/DL (5.7-8.2)
== END ==
LOC: M PLALAB 11:28
PROVIDERS: ATTEND Physician Assistant Medical
DX: I10 Essential (primary) hypertension (principal); D50.9 Iron deficiency anemia, unspecified; Z12.5 Encounter for screening for malignant neoplasm of prostate
CPT/HCPCS: 36415; 80053; 82728; 83540; 85025; G0103

== ENCOUNTER → 2024-04-09 | Outpatient (CLI) | payer MEDICARE ==
[~2024-04-09] MED LIST changes: +GABA-1172 PO; -GABA-282 PO
[2024-04-09 14:06] LABS: BASO # 0.1 10^3/uL (0.0-0.2); BASO % 1.6 % (0.0-1.0); EOS # 0.2 10^3/uL (0.0-0.5); EOS % 2.7 % (0.0-3.0); HEMATOCRIT 37.6 % (42.0-52.0); HEMOGLOBIN 12.2 g/dl (13.5-17.5); LYMPH # 1.5 10^3/uL (1.5-5.0); LYMPH % 18.9 % (24.0-44.0); MEAN CORPUSCULAR HEMOGLOBIN 31.9 pg (27.0-33.0); MEAN CORPUSCULAR HGB CONC 32.4 g/dl (32.0-36.5); MEAN CORPUSCULAR VOLUME 98.4 fl (80.0-96.0); MONO # 0.7 10^3/uL (0.0-0.8); NEUTROPHILS # 5.6 10^3/uL (1.5-8.5); NEUTROPHILS % 68.4 % (36.0-66.0); PLATELET COUNT, AUTOMATED 196 10^3/uL (150-450); RED BLOOD COUNT 3.82 10^6/uL (4.30-6.10); WHITE BLOOD COUNT 8.1 10^3/uL (4.0-10.0)
[2024-04-09 14:42] LABS: ALBUMIN 3.7 G/DL (3.2-5.2); BILIRUBIN,TOTAL 0.7 MG/DL (0.3-1.2); CALCIUM LEVEL 8.5 MG/DL (8.3-10.6); CHOLESTEROL RISK RATIO 3.06 (<5); CREATININE FOR GFR 2.12 MG/DL (0.70-1.30); GLOMERULAR FILTRATION RATE 32.1 (>35); HDL CHOLESTEROL 39.5 MG/DL (>40); LDL CHOLESTEROL 64.9 MG/DL (<100); NON-HDL-C 81.5 MG/DL; PERCENT SATURATION 47.5 % (19.7-50.0); POTASSIUM SERUM 4.2 MMOL/L (3.5-5.1); PSA SCREENING 0.42 NG/ML (< 4.00); TOTAL PROTEIN 6.6 G/DL (5.7-8.2)
== END ==
LOC: M PLALAB 11:06
PROVIDERS: ATTEND Nurse Practitioner Family
DX: I10 Essential (primary) hypertension (principal); D50.9 Iron deficiency anemia, unspecified; E78.2 Mixed hyperlipidemia; Z12.5 Encounter for screening for malignant neoplasm of prostate; E55.9 Vitamin D deficiency, unspecified; E53.8 Deficiency of other specified B group vitamins
CPT/HCPCS: 36415; 80053; 80061; 82607; 82652; 83550; 85025; G0103

== ENCOUNTER → 2024-04-23 | Outpatient (CLI) | payer MEDICARE ==
[2024-04-23 14:07] LABS: BASO # 0.1 10^3/uL (0.0-0.2); BASO % 1.4 % (0.0-1.0); EOS # 0.3 10^3/uL (0.0-0.5); HEMATOCRIT 38.5 % (42.0-52.0); HEMOGLOBIN 12.3 g/dl (13.5-17.5); LYMPH # 1.6 10^3/uL (1.5-5.0); LYMPH % 18.3 % (24.0-44.0); MEAN CORPUSCULAR HEMOGLOBIN 31.1 pg (27.0-33.0); MEAN CORPUSCULAR HGB CONC 31.9 g/dl (32.0-36.5); MEAN CORPUSCULAR VOLUME 97.5 fl (80.0-96.0); MONO # 0.7 10^3/uL (0.0-0.8); MONO % 7.8 % (2.0-8.0); NEUTROPHILS # 5.9 10^3/uL (1.5-8.5); NEUTROPHILS % 69.1 % (36.0-66.0); PLATELET COUNT, AUTOMATED 157 10^3/uL (150-450); RED BLOOD COUNT 3.95 10^6/uL (4.30-6.10); WHITE BLOOD COUNT 8.5 10^3/uL (4.0-10.0)
== END ==
LOC: M PLALAB 10:50
PROVIDERS: ATTEND Physician Assistant Medical
DX: D50.9 Iron deficiency anemia, unspecified (principal); D47.2 Monoclonal gammopathy

== ENCOUNTER → 2025-01-03 | Outpatient (CLI) | payer MEDICARE ==
[~2025-01-03] MED LIST changes: -AMIO200T49 PO; +AMIO200T54 PO
[2025-01-03 15:53] LABS: BASO # 0.1 10^3/uL (0.0-0.2); BASO % 1.5 % (0.0-1.0); EOS # 0.2 10^3/uL (0.0-0.5); EOS % 2.5 % (0.0-3.0); LYMPH # 1.7 10^3/uL (1.5-5.0); LYMPH % 18.8 % (24.0-44.0); MONO # 0.6 10^3/uL (0.0-0.8); MONO % 7.3 % (2.0-8.0); NEUTROPHILS # 6.1 10^3/uL (1.5-8.5); NEUTROPHILS % 69.6 % (36.0-66.0); PLATELET COUNT, AUTOMATED 177 10^3/uL (150-450)
[2025-01-03 15:59] LABS: ALT/SGPT 13.0 U/L (7.0-40); AST/SGOT 17.0 U/L (<34); CALCIUM LEVEL 8.7 MG/DL (8.3-10.6); CARBON DIOXIDE LEVEL 30.0 MMOL/L (20-31); CHLORIDE LEVEL 103.0 MMOL/L (98-107); CHOLESTEROL LEVEL 103.0 MG/DL (<200); CHOLESTEROL RISK RATIO 2.49 (<5); CREATININE FOR GFR 2.15 MG/DL (0.70-1.30); GLOMERULAR FILTRATION RATE 30.2 (>35); IRON (FE) 74.0 UG/DL (65-175); LDL CHOLESTEROL 49.3 MG/DL (<100); NON-HDL-C 61.7 MG/DL; POTASSIUM SERUM 4.2 MMOL/L (3.5-5.1); SODIUM LEVEL 143.0 MMOL/L (136-145); TRIGLYCERIDES LEVEL 62.0 MG/DL (<150)
[2025-01-07 13:07] LABS: FREE KAPPA LIGHT CHAINS URINE 32.17 mg/L (<=32.90); FREE LAMBDA LIGHT CHAINS URINE 7.28 mg/L (<=3.79); KAPPA/LAMBDA RATIO URINE 4.42 (<=8.69)
[2025-01-07 15:07] LABS: FREE KAPPA LIGHT CHAINS SERUM 49.2 mg/L (3.3-19.4); FREE LAMBDA LIGHT CHAINS SERUM 35.3 mg/L (5.7-26.3); KAPPA/LAMBDA RATIO SERUM 1.39 (0.26-1.65)
== END ==
LOC: M PLALAB 12:26
PROVIDERS: ATTEND Physician Assistant Medical
DX: D50.9 Iron deficiency anemia, unspecified (principal); D47.2 Monoclonal gammopathy; I50.42 Chronic combined systolic (congestive) and diastolic (congestive) heart failure; E78.2 Mixed hyperlipidemia; I11.0 Hypertensive heart disease with heart failure